=== PATIENT | male | born 1985 | race Two or more races ===

== ENCOUNTER 2023-10-03 21:51 | Emergency (ER) | payer OTHER ==
[~2023-10-03] VITALS: Ht 188 cm; Wt 123.4 kg
[2023-10-03] MEDS ORDERED: 0.9 % SODIUM CHLORIDE 1,000 ML IV STA (22:27)
[2023-10-03] MEDS ORDERED: LACTOBACILLUS ACIDOPHILUS 1 CAP CAP PO ONE (22:30)
[2023-10-03] MEDS ORDERED: MEPERIDINE HCL 25 MG/ML AMPUL IV ONE (22:45)
[2023-10-03 23:43] LABS: PH,URINE 5.5 (5.0-8.0); URINE APPEARANCE Clear; URINE BILIRRUBIN Small (NEGATIVE); URINE BLOOD Moderate; URINE COLOR Dark Yellow; URINE GLUCOSE Negative (NEGATIVE); URINE LEUKOCYTE Negative; URINE NITRATE Negative; URINE PROTEIN 30 (NEGATIVE)
[2023-10-03 23:46] LABS: URINE BACTERIA 21.4 uL (0.0-1933); URINE EPITHELIAL CELLS 18.2 uL (0.0-38.8); URINE RBC 41.3 uL (0.0-20.8); URINE WBC 12.9 uL (0.0-23.2)
[2023-10-04 00:08] LABS: HEMATOCRIT 48.8 % (39.0-48.0); HEMOGLOBIN 16.1 g/dL (13-16.00); MEAN CELL VOLUME 80.6 fL (80.0-100.00); MEAN CORPUSCULAR HEMOGLOBIN 26.6 pg (27.00-32.0); PLATELET COUNT 282 K/uL (150-450); RED BLOOD COUNT 6.06 M/uL (4.00-6.00); RED CELL DISTRIBUTION WIDTH 14.6 % (11.5-14.5)
[2023-10-04 00:54] LABS: CALCIUM 9.3 mg/dL (8.5-10.1); CREATININE SERUM 0.93 mg/dL (0.70-1.30); GFR 90.93; POTASSIUM 3.59 mEq/L (3.5-5.1)
[2023-10-04] MEDS ORDERED: LEVSIN/SL0.125 MG SL ×2 (04:31)
[2023-10-04] MEDS ORDERED: INTESTINEX680 M2 PO (04:31)
[2023-10-04] MEDS ORDERED: HYOSCYAMINE SULFATE 0.125 MG TAB.SUBL SL ONE (05:00)
== END 2023-10-04 04:50 ==
LOC: ER 21:52
PROVIDERS: Emergency Medicine
DX: K52.9 Noninfective gastroenteritis and colitis, unspecified (principal)